=== PATIENT | female | born 1950 | race Caucasian/White ===

== ENCOUNTER 2022-12-10 12:05 | Outpatient (CLI) | payer OTHER, BC | END 2022-12-10 22:48 | disposition home or self-care (01) | LOC: MRD 12:05 | PROVIDERS: ATTEND Internal Medicine | DX: M19.072 Primary osteoarthritis, left ankle and foot (principal); M19.071 Primary osteoarthritis, right ankle and foot; M79.89 Other specified soft tissue disorders; M79.672 Pain in left foot; M79.671 Pain in right foot; M77.32 Calcaneal spur, left foot; M77.31 Calcaneal spur, right foot | CPT/HCPCS: 73630 ==